=== PATIENT | male | born 2000 ===

== ENCOUNTER 2025-06-16 20:19 | Emergency (ER) | payer BC, OTHER | END 2025-06-16 20:55 | disposition home or self-care (01) | LOC: MW.ED 20:19 | DX: J02.9 Acute pharyngitis, unspecified (principal); Z75.3 Unavailability and inaccessibility of health-care facilities; Z91.048 Other nonmedicinal substance allergy status; Z91.018 Allergy to other foods | CPT/HCPCS: 87428-QW; 87651; 99283 ==